=== PATIENT | female | born 1990 | race Caucasian/White ===

== ENCOUNTER 2024-06-20 18:35 | Emergency (ER) | payer OTHER ==
[~2024-06-20] VITALS: Ht 165.1 cm; Wt 72.8 kg
[2024-06-20 18:37] VITALS: BP 132/86; TEMP 98.7; O2SAT 100
[2024-06-20] MEDS ORDERED: RIME75TA (18:43)
[2024-06-20] MEDS ORDERED: NORT25CA2 (18:43)
[2024-06-20] MEDS ORDERED: ISOVUE-370 76% 100ML VIAL As Ordered ONE (19:40)
[2024-06-20 19:44] LABS: HEMATOCRIT 36.3 % (36.0-47.0); MEAN CORPUSCULAR HGB CONC 33.1 g/dl (32.0-36.5); MEAN CORPUSCULAR VOLUME 87.7 fl (80.0-96.0); PLATELET COUNT, AUTOMATED 252 10^3/uL (150-450); RED BLOOD COUNT 4.14 10^6/uL (4.00-5.40); WHITE BLOOD COUNT 9.4 10^3/uL (4.0-10.0)
[2024-06-20 19:56] LABS: INR 0.95
[2024-06-20] MEDS: dexAMETHasone 20MG/5ML VIAL IV ONE (21:40)
== END 2024-06-20 21:57 | disposition home or self-care (01) ==
LOC: M ED 18:35
DX: R20.2 Paresthesia of skin (principal); I45.10 Unspecified right bundle-branch block; Z88.0 Allergy status to penicillin; Z88.1 Allergy status to other antibiotic agents; Z79.899 Other long term (current) drug therapy
CPT/HCPCS: 71275; 73206; 80047; 85027; 85610; 93005; 96374; 99284; J1100; Q9967